=== PATIENT | male | born 1950 | race Two or more races ===

== ENCOUNTER → 2024-03-03 | Outpatient (CLI) | payer OTHER ==
[2024-03-03 10:48] LABS: Anion Gap 6 (5-15); Carbon Dioxide 27 mmol/L (20-30); Chloride 108 mmol/L (98-107); Potassium 4.2 mmol/L (3.5-5.1); Sodium 141 mmol/L (136-145)
[2024-03-03 10:50] LABS: Calcium 9.3 mg/dL (8.7-10.4)
[2024-03-03 10:54] LABS: Glucose 120 mg/dL (74-106)
[2024-03-03 10:55] LABS: Blood Urea Nitrogen 12 mg/dL (9-23); LDL Cholesterol 83 mg/dL (< 100); Triglycerides 86 mg/dL (< 150)
[2024-03-03 10:56] LABS: Cholesterol 142 mg/dL (< 200)
[2024-03-03 10:57] LABS: HDL Cholesterol 45 mg/dL (40-59)
[2024-03-04 07:07] LABS: RPR Non Reactive (Non Reactive)
[2024-03-04 12:06] LABS: Chlamydia Trachomatis, NAA Negative (Negative); Neisseria gonorrhoeae, NAA Negative (Negative)
== END | disposition home or self-care (01) ==
LOC: LAB 10:02
PROVIDERS: ATTEND Internal Medicine
DX: Z12.5 Encounter for screening for malignant neoplasm of prostate (principal); I10 Essential (primary) hypertension; E78.5 Hyperlipidemia, unspecified; E03.9 Hypothyroidism, unspecified
CPT/HCPCS: 36415; 80048; 80061; 84153; 84443; 86592; 86703

== ENCOUNTER 2025-04-02 12:38 | Outpatient (CLI) | payer OTHER ==
[2025-04-02 13:20] LABS: Chloride 106 mmol/L (98-107); Sodium 144 mmol/L (136-145)
[2025-04-02 13:21] LABS: Anion Gap 12 (5-15); Carbon Dioxide 26 mmol/L (20-31); Potassium 3.3 mmol/L (3.5-5.1)
[2025-04-02 13:22] LABS: Calcium 8.9 mg/dL (8.7-10.4)
[2025-04-02 13:26] LABS: BUN/Creatinine Ratio 9.0 (10.0-20.0)
[2025-04-02 13:29] LABS: Blood Urea Nitrogen 9 mg/dL (9-23); Glucose 117 mg/dL (74-106)
[2025-04-02 14:19] LABS: Triglycerides 105 mg/dL (< 150)
[2025-04-02 14:21] LABS: Cholesterol 157 mg/dL (< 200); HDL Cholesterol 49 mg/dL (40-59)
== END 2025-04-02 17:00 | disposition home or self-care (01) ==
LOC: LAB 12:38
PROVIDERS: ATTEND Internal Medicine
DX: I10 Essential (primary) hypertension (principal); E78.5 Hyperlipidemia, unspecified; Z12.5 Encounter for screening for malignant neoplasm of prostate
CPT/HCPCS: 36415; 80048; 80061; 84153